=== PATIENT | male | born 1935 | race Caucasian/White ===

== ENCOUNTER → 2017-10-20 | Outpatient (CLI) | payer OTHER ==
[~2017-10-20] MED LIST: NORCO 5-325 TA1 EACH PO; NORVASC10 MG PO; SYNTHROID125 MCG PO; TAMSULOSIN HCL0.4 M1 PO; ZOCOR 20 MG TAB20 M1 PO; ZOFRAN4 MG PO
--- NOTE | 2017-10-20 13:56 | 2DMMODE ---
[place] [address] 2 D/M-MODE ECHOCARDIOGRAM Name: ANDREW DUTTON Room: [facility]#: [id number] Admission: 10/20/17 Attend Phys: Marizol Mathias Discharge: Date of : 39 Date of Service: 10/20/17 1355 Report #: [id number] THIS REPORT FOR: //name// APPROVED REPORT Study performed: 10/20/2017 13:08:18 EXAM: Comprehensive 2D, Doppler, and color-flow Echocardiogram Patient Location: Out-Patient Status: routine BSA: 2.00 HR: 62 bpm BP: 123/65 mmHg Other Information Study Quality: Good Indications CAD 2D Dimensions LVEF(%): 62.63 (>50%) IVSd: 9.87 (7-11mm) LVOT Diam: 20.04 (18-24mm) LVDd: 35.88 mm PWd: 10.21 (7-11mm) Ascending Ao: 30.15 (22-36mm) LVDs: 24.01 (25-40mm) Aortic Root: 22.02 mm Burnett's LVEF: 62.63 % Volumes Left Atrial Volume (Systole) LA ESV Index: 18.70 mL/m2 Aortic Valve AoV Peak Lucien.: 1.27 m/s AO Peak Gr.: 6.46 mmHg LVOT Max P.35 mmHg AO Mean Gr.: 3.13 mmHg LVOT Mean P.20 mmHg LVOT Max V: 0.77 m/s AO V2 VTI: 24.66 cm LVOT Mean V: 0.50 m/s RUKHSANA (VTI): 2.36 cm2 LVOT V1 VTI: 18.43 cm Mitral Valve E/A Ratio: 0.72 MV Decel. Time: 225.[place] [address] 2 D/M-MODE ECHOCARDIOGRAM Name: ANDREW DUTTON Room: [facility]#: [id number] Admission: 10/20/17 Attend Phys: Marizol Mathias Discharge: Date of : 39 Date of Service: 10/20/17 1355 Report #: [id number] MV E Max Lucien.: 0.48 m/s MV PHT: 65.49 ms MVA (PHT): 3.36 cm2 TDI E/Lateral E': 6.00 E/Medial E': 9.60 Medial E' Lucien.: 0.05 m/s Lateral E' Lucien.: 0.08 m/s Pulmonary Valve PV Peak Lucien.: 0.75 m/s PV Peak Gr.: 2.22 mmHg Tricuspid Valve RAP Estimate: 5.00 mmHg TR Peak Gr.: 25.36 mmHg RVSP: 30.36 mmHg PA Pressure: 30.36 mmHg Left Ventricle The left ventricle is normal size. There is normal LV segmental wall motion. Mild concentric left ventricular hypertrophy. Left ventricular systolic function is normal. LVEF is 65-70%. Grade I - abnormal relaxation pattern. Right Ventricle The right ventricle is normal size. The right ventricular systolic function is normal. Atria Left atrium is mildly dilated. The right atrium size is normal. Aortic Valve The aortic valve is normal in structure. Mild aortic regurgitation. There is no aortic valvular stenosis. Mitral Valve The mitral valve is normal in structure. Mild mitral regurgitation. No evidence of mitral valve stenosis. Tricuspid Valve The tricuspid valve is normal in structure. Mild tricuspid regurgitation. The RVSP is 30 mmHg. Pulmonic Valve The pulmonary valve is normal in structure. There is no pulmonic [place] [address] 2 D/M-MODE ECHOCARDIOGRAM Name: ANDREW DUTTON [id number] Admission: 10/20/17 Attend Phys: Marizol Mathias Discharge: Date of : 39 Date of Service: 10/20/17 1355 Report #: [id number] Great Vessels The aortic root is normal in size. IVC is normal in size and collapses with >50% inspiration Pericardium There is no pericardial effusion. <Conclusion> The left ventricle is normal size. Mild concentric left ventricular hypertrophy. Left ventricular systolic function is normal. LVEF is 65-70%. Grade I - abnormal relaxation pattern. Left atrium is mildly dilated. Mild mitral regurgitation. Mild tricuspid regurgitation. The RVSP is 30 mmHg. IVC is normal in size and collapses with >50% inspiration <ELECTRONICALLY SIGNED> By: Lonnie Stafford MD, FACC 10/20/17 1355 1355 1355 Lonnie Stafford MD, FACC /INF
== END ==
LOC: M.CRD 12:50
DX: I08.3 Combined rheumatic disorders of mitral, aortic and tricuspid valves (principal); I25.10 Atherosclerotic heart disease of native coronary artery without angina pectoris; I10 Essential (primary) hypertension

== ENCOUNTER → 2018-10-05 | Outpatient (CLI) | payer OTHER ==
--- NOTE | 2018-10-05 13:28 | 2DMMODE ---
[place] [address] 2 D/M-MODE ECHOCARDIOGRAM Name: ANDREW DUTTON Room: [facility]#: [id number] Admission: 10/05/18 Attend Phys: Marizol Mathias Discharge: Date of : 39 Date of Service: 10/05/18 1328 Report #: [id number] THIS REPORT FOR: //name// APPROVED REPORT Study performed: 10/05/2018 09:04:40 EXAM: Comprehensive 2D, Doppler, and color-flow Echocardiogram Patient Location: Out-Patient BSA: 2.04 HR: 66 bpm BP: 123/65 mmHg Other Information Study Quality: Good Indications Hypertension/HDD 2D Dimensions IVSd: 13.50 (7-11mm) LVOT Diam: 20.47 (18-24mm) LVDd: 33.39 mm PWd: 11.54 (7-11mm) Ascending Ao: 33.06 (22-36mm) LVDs: 22.74 (25-40mm) Aortic Root: 21.51 mm Volumes Left Atrial Volume (Systole) LA ESV Index: 16.00 mL/m2 Aortic Valve AoV Peak Lucien.: 1.38 m/s AO Peak Gr.: 7.56 mmHg LVOT Max P.40 mmHg AO Mean Gr.: 3.97 mmHg LVOT Mean P.86 mmHg LVOT Max V: 0.92 m/s AO V2 VTI: 24.37 cm LVOT Mean V: 0.63 m/s RUKHSANA (VTI): 2.55 cm2 LVOT V1 VTI: 18.89 cm Mitral Valve E/A Ratio: 0.70 MV Decel. Time: 240.35 ms MV E Max Lucien.: 0.41 m/s MV PHT: 69.70 ms MVA (PHT): 3.16 [place] [address] 2 D/M-MODE ECHOCARDIOGRAM Name: ANDREW DUTTON Room: [facility]#: [id number] Admission: 10/05/18 Attend Phys: Marizol Mathias Discharge: Date of : 39 Date of Service: 10/05/18 1328 Report #: [id number] TDI E/Lateral E': 5.86 E/Medial E': 8.20 Medial E' Lucien.: 0.05 m/s Lateral E' Lucien.: 0.07 m/s Pulmonary Valve PV Peak Lucien.: 0.92 m/s PV Peak Gr.: 3.41 mmHg Tricuspid Valve RAP Estimate: 5.00 mmHg TR Peak Gr.: 26.60 mmHg RVSP: 31.60 mmHg PA Pressure: 31.60 mmHg Left Ventricle The left ventricle is normal size. There is normal LV segmental wall motion. Mild concentric left ventricular hypertrophy. Left ventricular systolic function is normal. The left ventricular ejection fraction is within the normal range. LVEF is 65-70%. Grade I - abnormal relaxation pattern. Right Ventricle The right ventricle is normal size. The right ventricular systolic function is normal. Atria The left atrium size is normal. The right atrium size is normal. Aortic Valve The aortic valve is normal in structure. Trace aortic regurgitation. There is no aortic valvular stenosis. Mitral Valve The mitral valve is normal in structure. There is no mitral valve regurgitation noted. No evidence of mitral valve stenosis. Tricuspid Valve The tricuspid valve is normal in structure. Mild tricuspid regurgitation. Pulmonic Valve The pulmonary valve is normal in structure. There is no pulmonic valvular regurgitation[place] [address] 2 D/M-MODE ECHOCARDIOGRAM Name: ANDREW DUTTON Room: [facility]#: [id number] Admission: 10/05/18 Attend Phys: Marizol Mathias Discharge: Date of : 39 Date of Service: 10/05/18 1328 Report #: [id number] The aortic root is normal in size. IVC is normal in size and collapses >50% with inspiration. Pericardium There is no pericardial effusion. <Conclusion> The left ventricle is normal size. Mild concentric left ventricular hypertrophy. There is normal LV segmental wall motion. LVEF is 65-70%. Grade I - abnormal relaxation pattern. There is no aortic valvular stenosis. Trace aortic regurgitation. No evidence of mitral valve stenosis. There is no mitral valve regurgitation noted. <ELECTRONICALLY SIGNED> By: Db Valdez MD, FACC 10/05/18 1328 27 1328 Db Valdez MD, FACC /INF
== END ==
LOC: M.CRD 09:00
DX: I34.0 Nonrheumatic mitral (valve) insufficiency (principal); I11.9 Hypertensive heart disease without heart failure; I25.10 Atherosclerotic heart disease of native coronary artery without angina pectoris

== ENCOUNTER → 2020-10-30 | Outpatient (CLI) | payer OTHER ==
--- NOTE | 2020-10-30 14:08 | 2DMMODE ---
[place] [address] 2 D/M-MODE ECHOCARDIOGRAM Name: ANDREW MORALES Room: [facility]#: [id number] Admission: 10/30/20 Attend Phys: Marizol Mathias Discharge: Date of : 39 Date of Service: 10/30/20 1408 Report #: [id number] THIS REPORT FOR: cc: Tran Morales MD, Lin W. MD Holkins, John M. MD [facility] ~ APPROVED REPORT Study performed: 10/30/2020 13:00:14 EXAM: Comprehensive 2D, Doppler, and color-flow Echocardiogram Patient Location: Out-Patient BSA: 2.04 HR: 56 bpm BP: 118/68 mmHg Other Information Study Quality: Good Indications CAD 2D Dimensions IVSd: 15.51 (7-11mm) LVOT Diam: 19.28 (18-24mm) LVDd: 39.16 mm PWd: 14.71 (7-11mm) Ascending Ao: 34.23 (22-36mm) LVDs: 29.38 (25-40mm) Aortic Root: 29.33 mm Volumes Left Atrial Volume (Systole) LA ESV Index: 18.60 mL/m2 Aortic Valve AoV Peak Lucien.: 1.42 m/s AO Peak Gr.: 8.10 mmHg LVOT Max P.45 mmHg AO Mean Gr.: 4.44 mmHg LVOT Mean P.84 mmHg LVOT Max V: 0.93 m/s AO V2 VTI: 23.36 cm LVOT Mean V: 0.62 m/s RUKHSANA (VTI): 2.41 cm2 LVOT V1 VTI: 19.28 cm Mitral Valve E/A Ratio: 0.76 [place] [address] 2 D/M-MODE ECHOCARDIOGRAM Name: ANDREW MORALES [id number] Admission: 10/30/20 Attend Phys: Marizol Mathias Discharge: Date of : 39 Date of Service: 10/30/20 1408 Report #: [id number] MV Decel. Time: 250.70 ms MV E Max Lucien.: 0.44 m/s MV PHT: 72.70 ms MVA (PHT): 3.03 cm2 TDI E/Lateral E': 7.33 E/Medial E': 7.33 Medial E' Lucien.: 0.06 m/s Lateral E' Lucien.: 0.06 m/s Pulmonary Valve PV Peak Lucien.: 0.83 m/s PV Peak Gr.: 2.78 mmHg Tricuspid Valve RAP Estimate: 5.00 mmHg TR Peak Gr.: 14.69 mmHg RVSP: 19.69 mmHg PA Pressure: 19.69 mmHg Left Ventricle The left ventricle is normal size. There is normal LV segmental wall motion. Moderate concentric left ventricular hypertrophy. Left ventricular systolic function is normal. The left ventricular ejection fraction is within the normal range. LVEF is 65%. Grade I - abnormal relaxation pattern. Right Ventricle The right ventricle is normal size. The right ventricular systolic function is normal. Atria The left atrium size is normal. The right atrium size is normal. Aortic Valve Mild aortic valve sclerosis. Mild aortic regurgitation. There is no aortic valvular stenosis. Mitral Valve The mitral valve is normal in structure. Trace mitral regurgitation. No evidence of mitral valve stenosis. Tricuspid Valve The tricuspid valve is normal in structure. Trace tricuspid regurgitation[place] [address] 2 D/M-MODE ECHOCARDIOGRAM Name: ANDREW MORALES [id number] Admission: 10/30/20 Attend Phys: Marizol Mathias Discharge: Date of : 39 Date of Service: 10/30/20 1408 Report #: [id number] The pulmonary valve is normal in structure. There is no pulmonic valvular regurgitation. Great Vessels The aortic root is normal in size. IVC is normal in size and collapses >50% with inspiration. Pericardium There is no pericardial effusion. <Conclusion> The left ventricle is normal size. Moderate concentric left ventricular hypertrophy. Left ventricular systolic function is normal. The left ventricular ejection fraction is within the normal range. LVEF is 65%. Grade I - abnormal relaxation pattern. The right ventricle is normal size. The left atrium size is normal. Mild aortic valve sclerosis. Mild aortic regurgitation. There is no aortic valvular stenosis. The mitral valve is normal in structure. Trace mitral regurgitation. The tricuspid valve is normal in structure. Trace tricuspid regurgitation. IVC is normal in size and collapses >50% with inspiration. There is no pericardial effusion. There is normal LV segmental wall motion. <ELECTRONICALLY SIGNED> By: Andi Barnett MD, FACC 10/30/20 1408 1408 1408 Andi Barnett MD, FACC /INF
== END ==
LOC: M.CRD 13:00
PROVIDERS: ATTEND Internal Medicine
DX: I35.1 Nonrheumatic aortic (valve) insufficiency (principal); I25.10 Atherosclerotic heart disease of native coronary artery without angina pectoris; I51.89 Other ill-defined heart diseases; I10 Essential (primary) hypertension; R55 Syncope and collapse

== ENCOUNTER → 2021-02-20 | Outpatient (CLI) | payer OTHER | LOC: M.CT 02-12 14:19 → M.ULTRA 08:45 → M.CT 09:00 → M.ULTRA 09:30 | PROVIDERS: ATTEND Internal Medicine | DX: I65.23 Occlusion and stenosis of bilateral carotid arteries (principal); I67.82 Cerebral ischemia; H53.9 Unspecified visual disturbance; G45.3 Amaurosis fugax ==